=== PATIENT | male | born 1995 | race Hispanic/Latino ===

== ENCOUNTER 2019-09-07 15:19 | Emergency (ER) | payer OTHER, SELFPAY ==
[2019-09-07] MEDS ORDERED: Ketorolac Tromethamine 30 MG/ML VIAL ONE (17:31)
--- NOTE | 2019-09-07 18:09 | RAD ---
XR Lumbar Spine 2 Or 3 View HISTORY: Injury, back pain FINDINGS: No fracture or subluxation is identified.
== END 2019-09-07 18:54 | disposition home or self-care (01) ==
LOC: ERS 15:19
DX: S33.5XXA Sprain of ligaments of lumbar spine, initial encounter (principal); W20.8XXA Other cause of strike by thrown, projected or falling object, initial encounter
CPT/HCPCS: 72100; 96372; J1885